=== PATIENT | male | born 1950 | race Hispanic/Latino ===

== ENCOUNTER → 2019-07-09 | Outpatient (CLI) | payer OTHER | END | disposition home or self-care (01) | LOC: RAH 08:58 | PROVIDERS: ATTEND Ophthalmology | DX: B58.01 Toxoplasma chorioretinitis (principal); I70.0 Atherosclerosis of aorta; M47.814 Spondylosis without myelopathy or radiculopathy, thoracic region | CPT/HCPCS: 71046 ==

== ENCOUNTER → 2019-09-09 | Outpatient (CLI) | payer OTHER | END | disposition home or self-care (01) | LOC: RAH 10:33 | PROVIDERS: ATTEND Family Medicine | DX: R10.30 Lower abdominal pain, unspecified (principal); R10.2 Pelvic and perineal pain; R31.9 Hematuria, unspecified; R10.813 Right lower quadrant abdominal tenderness; R39.89 Other symptoms and signs involving the genitourinary system | CPT/HCPCS: 76857 ==

== ENCOUNTER → 2019-10-23 | Outpatient (CLI) | payer OTHER | END | disposition home or self-care (01) | LOC: OIH 10:40 | PROVIDERS: ATTEND Family Medicine | DX: M19.011 Primary osteoarthritis, right shoulder (principal) | CPT/HCPCS: 73030 ==

== ENCOUNTER → 2020-04-16 | Outpatient (CLI) | payer OTHER | END | disposition home or self-care (01) | LOC: RAH 12:56 | PROVIDERS: ATTEND Family Medicine | DX: N28.1 Cyst of kidney, acquired (principal); K59.00 Constipation, unspecified; R14.0 Abdominal distension (gaseous) | CPT/HCPCS: 74018; 76770 ==

== ENCOUNTER → 2020-11-11 | Outpatient (CLI) | payer OTHER | END | disposition home or self-care (01) | LOC: RAH 08:22 | PROVIDERS: ATTEND Family Medicine | DX: I12.9 Hypertensive chronic kidney disease with stage 1 through stage 4 chronic kidney disease, or unspecified chronic kidney disease (principal); N18.4 Chronic kidney disease, stage 4 (severe); I35.0 Nonrheumatic aortic (valve) stenosis; E66.9 Obesity, unspecified; E78.5 Hyperlipidemia, unspecified; R55 Syncope and collapse | CPT/HCPCS: 93306; 93356 ==

== ENCOUNTER → 2021-03-16 | Outpatient (CLI) | payer OTHER | END | disposition home or self-care (01) | LOC: OIH 11:44 | PROVIDERS: ATTEND Family Medicine | DX: M50.30 Other cervical disc degeneration, unspecified cervical region (principal); M43.22 Fusion of spine, cervical region; M25.519 Pain in unspecified shoulder | CPT/HCPCS: 72040; 73010 ==

== ENCOUNTER 2021-03-19 11:00 | Inpatient (IN) | payer OTHER ==
[~2021-03-19] VITALS: Ht 170.2 cm; Wt 98.3 kg
[2021-03-19 11:52] LABS: BASOPHILS % (AUTO) 0.5 % (0.0-5.0); EOSINOPHILS % (AUTO) 1.2 % (0.0-8.0); HEMATOCRIT 47.6 % (42-54); LYMPHOCYTES % (AUTO) 26.2 % (21.0-51.0); MEAN CORPUSCULAR VOLUME 94.1 fL (79-99); MONOCYTES % (AUTO) 9.7 % (3.0-13.0); NEUTROPHILS % (AUTO) 61.6 % (40.0-77.0); PLATELET COUNT (AUTO) 192 K/uL (130-400); RED BLOOD CELL COUNT(AUTO) 5.06 MIL/uL (4.50-6.20); RED CELL DISTRIBUTION WIDTH 13.2 % (11.0-15.5); WHITE BLOOD COUNT (AUTO) 8.6 K/uL (4.8-10.8)
[2021-03-19 11:56] LABS: APPEARANCE,URINE Clear (CLEAR); BILIRUBIN,URINE Negative (NEGATIVE); COLOR,URINE Yellow (YELLOW); GLUCOSE, URINE (UA) Negative (NEGATIVE); KETONES,URINE Negative (NEGATIVE); LEUKOCYTE ESTERASE ,URINE Negative (NEGATIVE); NITRATE,URINE Negative (NEGATIVE); OCCULT BLOOD,URINE Nonhemolyzed Trace (NEGATIVE); PROTEIN,URINE Trace mg/dL (NEGATIVE)
[2021-03-19 12:00] LABS: ABG BASE EXCESS 1.6 mmol/L (-2.0-3.0); ABG HCO3 25.1 mmol/L (21.0-28.0); ABG PCO2 37 mmHg (35-48)
[2021-03-19 12:06] LABS: HEMOGLOBIN A1C 7.4 % (4.0-6.0)
[2021-03-19 12:06] LABS: BACTERIA,URINE None Seen /HPF (None Seen); RBC,URINE 0-1 /HPF (0-1); SQUAMOUS EPITHELIAL CELL,UR 0-2 /HPF (0-2); WBC,URINE 0-1 /HPF (0-1)
[2021-03-19 12:07] LABS: INR 1.02 (0.85-1.15); PROTHROMBIN TIME 11.1 SEC (9.6-11.6)
[2021-03-19 12:08] LABS: PARTIAL THROMBOPLASTIN TIME 31.3 SEC (26.3-35.5)
[2021-03-19 12:10] LABS: ALBUMIN 4.1 g/dL (3.5-5.0); BILIRUBIN,TOTAL 0.5 mg/dL (0.2-1.0); CREATININE 1.3 mg/dL (0.5-1.5); POTASSIUM 3.5 mmol/L (3.5-5.1); TOTAL PROTEIN, SERUM 8.3 g/dL (6.0-8.3)
[2021-03-22] MEDS ORDERED: ASPI-1443 PO (13:23)
[2021-03-22] MEDS ORDERED: SIMV-43 PO (13:23)
[2021-03-22] MEDS ORDERED: MEMA7CAP PO (13:23)
[2021-03-22] MEDS ORDERED: POTA10CA44 PO (13:23)
[2021-03-22] MEDS ORDERED: VITAD50000 PO (13:23)
[2021-03-22] MEDS ORDERED: FURO20TA4 PO (13:23)
[2021-03-22] MEDS ORDERED: PANT40TA54 PO (13:23)
[2021-03-23] VITALS (15 sets, daily range): BP systolic 118–168; BP diastolic 49–77
[2021-03-23] MEDS ORDERED: EPINEPHRINE PF 1MG AMP 10 MG in 0.9% NACL 250ML 240 ML IV PRN (07:30)
[2021-03-23] MEDS ORDERED: AMINOCAPROIC ACID 5,000MG VIAL 15,000 MG in 0.9% NACL 500ML IV.SOLN 420 ML IV PRN (07:30)
[2021-03-23] MEDS ORDERED: NOREPINEPHRINE BITARTRATE 8 MG in DEXTROSE 5%-WATER 250 ML IV PRN (07:30)
[2021-03-23] MEDS ORDERED: LACTATED RINGERS 1000ML 1,000 ML IV ONE (10:10)
[2021-03-23] MEDS ORDERED: CEFAZOLIN SODIUM 1 GM VIAL ONE ×3 (10:13→18:30)
[2021-03-23] MEDS ORDERED: ROPIVACAINE 0.5% 5MG/ML 30ML IJ ONE (10:14)
[2021-03-23] MEDS ORDERED: EPINEPHRINE PF 1MG AMP ONE (10:18)
[2021-03-23] MEDS ORDERED: LIDOCAINE PF 100MG/5ML (2%) SYRINGE 5ML ONE (10:18)
[2021-03-23] MEDS ORDERED: ESMOLOL HCL 10 MG/ML 10 ML VIAL ONE (10:18)
[2021-03-23] MEDS ORDERED: SODIUM BICARB 50MEQ 50ML VIAL 150 ML ONE (10:18)
[2021-03-23] MEDS ORDERED: HEPARIN 10,000 UNIT/10ML (1,000 UNIT/ML) VIAL ONE ×2 (10:18→11:30)
[2021-03-23] MEDS ORDERED: AMINOCAPROIC ACID 5,000MG VIAL ONE (10:18)
[2021-03-23] MEDS ORDERED: PROTAMINE SULFATE 10 MG/ML 25ML VIAL IV ONE (10:18)
[2021-03-23] MEDS ORDERED: PROPOFOL 10 MG/ML 20ML VIAL IV ONE (10:19)
[2021-03-23] MEDS ORDERED: FENTANYL CITRATE PF 50 MCG/1 ML 20ML VIAL IJ ONE (10:19)
[2021-03-23] MEDS ORDERED: MIDAZOLAM HCL 1 MG/ML 2ML VIAL ONE (10:19)
[2021-03-23] MEDS ORDERED: NOREPINEPHRINE BITARTRATE 1 MG/1 ML ML IV ONE (10:19)
[2021-03-23] MEDS ORDERED: ROCURONIUM 10MG/1ML SYR 10 MG/ML ML ONE (10:19)
[2021-03-23] MEDS ORDERED: KETAMINE 50MG/ML SYRINGE 50 MG/ML DISP.SYRIN IV ONE (10:20)
[2021-03-23] MEDS ORDERED: DELNIDO FORMULA 1 BAG IV ONE (11:30)
[2021-03-23 11:41] LABS: ABG BASE EXCESS -1.3 mmol/L (-2.0-3.0); ABG HCO3 24.6 mmol/L (21.0-28.0); ABG OXYGEN SATURATION 99.2 % (95.0-99.0); ABG PCO2 45 mmHg (35-48)
[2021-03-23] MEDS ORDERED: MANNITOL 25% 50ML VIAL IV ONE (12:36)
[2021-03-23] MEDS ORDERED: ALBUMIN (HUMAN) 25% 50 ML IV ONE (12:36)
[2021-03-23] MEDS ORDERED: SODIUM BICARB 8.4% 50ML SYRINGE IVP ONE (12:36)
[2021-03-23] MEDS ORDERED: AMINOCAPROIC ACID 5,000MG VIAL IV ONE (12:36)
[2021-03-23] MEDS ORDERED: CACL 1GM SYG IVP ONE (12:36)
[2021-03-23] MEDS ORDERED: LIDOCAINE PF 100MG/5ML (2%) SYRINGE 5ML IVP ONE (12:36)
[2021-03-23] MEDS ORDERED: HEPARIN 10,000 UNIT VIAL IJ ONE (12:36)
[2021-03-23] MEDS ORDERED: MAGNESIUM SULFATE 1 GM/2 ML VIAL IM ONE (12:36)
[2021-03-23] MEDS ORDERED: PHENYLEPHRINE HCL 10 MG/ML 1ML VIAL IV ONE (12:36)
[2021-03-23] MEDS ORDERED: HEPARIN 10,000 UNIT/10ML (1,000 UNIT/ML) VIAL IV ONE (12:36)
[2021-03-23 13:08] LABS: ABG BASE EXCESS -2.5 mmol/L (-2.0-3.0); ABG HCO3 22.6 mmol/L (21.0-28.0); ABG OXYGEN SATURATION 97.8 % (95.0-99.0); ABG PCO2 40 mmHg (35-48)
[2021-03-23 14:02] LABS: ABG BASE EXCESS -4.3 mmol/L (-2.0-3.0); ABG HCO3 21.4 mmol/L (21.0-28.0); ABG OXYGEN SATURATION 95.7 % (95.0-99.0); ABG PCO2 41 mmHg (35-48)
[2021-03-23] MEDS ORDERED: SODIUM BICARB 50MEQ 50ML VIAL 50 ML ONE (14:20)
[2021-03-23] MEDS ORDERED: DEXTROSE 50%-WATER 50 ML DISP.SYRIN IV PRN (14:30)
[2021-03-23] MEDS ORDERED: ONDANSETRON 4MG INJ IV PRN (14:30)
[2021-03-23] MEDS ORDERED: AMINOCAPROIC ACID 5,000MG VIAL 15,000 MG in 0.9% NACL 250ML 250 ML IV SCH (14:30)
[2021-03-23] MEDS ORDERED: 0.9% NACL 500ML IV.SOLN 500 ML IV SCH (14:30)
[2021-03-23] MEDS ORDERED: ACETAMINOPHEN 325 MG TAB PO PRN (14:30)
[2021-03-23] MEDS ORDERED: MORPHINE 2 MG SYG IV PRN (14:30)
[2021-03-23] MEDS ORDERED: NOREPINEPHRIN 4MG/NS 250ML 250 ML IV PRN (14:30)
[2021-03-23] MEDS ORDERED: MORPHINE 4 MG SYG IV PRN (14:30)
[2021-03-23] MEDS ORDERED: POTASSIUM PHOS 15 mMOL+NS250ML 250 ML IV PRN (14:30)
[2021-03-23] MEDS ORDERED: TRAMADOL HCL 50 MG TABLET PO PRN (14:30)
[2021-03-23] MEDS ORDERED: GLUCAGON 1MG KIT 1 MG ML IM PRN (14:30)
[2021-03-23] MEDS ORDERED: ALBUMIN (HUMAN) 5% 250 ML IV PRN (14:30)
[2021-03-23] MEDS ORDERED: 0.9%NACL 10ML VIAL IVP PRN (14:30)
[2021-03-23] MEDS ORDERED: 0.2% ROPIVACAINE 600ML Q-PUMP IRRIG SCH (14:30)
[2021-03-23] MEDS ORDERED: NITROGLYCERIN 50MG/D5W 250ML 250 BOT IV SCH (14:30)
[2021-03-23] MEDS ORDERED: MAGNESIUM 2GM PREMIX 50ML 50 ML IV PRN (14:30)
[2021-03-23] MEDS ORDERED: 0.9%NACL 1000ML 1,000 ML IV SCH (14:30)
[2021-03-23] MEDS ORDERED: EPINEPHRINE PF 1MG AMP 10 MG in DEXTROSE 5%-WATER 250 ML IV PRN (14:30)
[2021-03-23] MEDS ORDERED: ACETAMINOPHEN 650 MG SUPPOSITORY RC PRN (14:30)
[2021-03-23 14:37] LABS: ABG BASE EXCESS -4.1 mmol/L (-2.0-3.0); ABG HCO3 21.9 mmol/L (21.0-28.0); ABG OXYGEN SATURATION 91.3 % (95.0-99.0); ABG PCO2 44 mmHg (35-48)
[2021-03-23] MEDS ORDERED: EPHEDRINE SULFATE 50 MG/ML AMPULE ONE (15:05)
[2021-03-23] MEDS ORDERED: IPRATROPIUM/ALBUTEROL SULFATE 3 ML SOLUTION IH ONE (15:29)
[2021-03-23 15:41] LABS: ABG BASE EXCESS -6.4 mmol/L (-2.0-3.0); ABG OXYGEN SATURATION 94.3 % (95.0-99.0); ABG PCO2 49 mmHg (35-48)
[2021-03-23 15:52] LABS: HEMATOCRIT 41.6 % (42-54); MEAN CORPUSCULAR HEMOGLOBIN 32.6 pg (27.0-33.0); MEAN CORPUSCULAR HGB CONC 33.9 g/dL (32.0-36.0); MEAN CORPUSCULAR VOLUME 96.3 fL (79-99); RED BLOOD CELL COUNT(AUTO) 4.32 MIL/uL (4.50-6.20); RED CELL DISTRIBUTION WIDTH 13.4 % (11.0-15.5); WHITE BLOOD COUNT (AUTO) 29.6 K/uL (4.8-10.8)
[2021-03-23] MEDS: INSULIN REGULAR, HUMAN 3ML 100 UNIT in 0.9%NACL 100ML 99 ML IV SCH ×2 (15:58)
[2021-03-23] MEDS: SODIUM BICARB 50MEQ 50ML VIAL IV PRN ×4 (15:59→19:50)
[2021-03-23] MEDS: POTASSIUM CHLORIDE 20MEQ/100ML 100 ML IV PRN ×6 (16:03→22:40)
[2021-03-23 16:04] LABS: INR 1.15 (0.85-1.15); PROTHROMBIN TIME 12.4 SEC (9.6-11.6)
[2021-03-23 16:05] LABS: CREATININE 1.6 mg/dL (0.5-1.5); MAGNESIUM 3.2 mg/dL (1.80-2.40); PARTIAL THROMBOPLASTIN TIME 39.3 SEC (26.3-35.5); POTASSIUM 3.1 mmol/L (3.5-5.1)
[2021-03-23] MEDS: CALCIUM GLUC 1GM 1 GM in 0.9%NACL 50ML 50 ML IV PRN ×6 (16:13→22:39)
[2021-03-23 17:06] LABS: ABG HCO3 20.7 mmol/L (21.0-28.0); ABG OXYGEN SATURATION 90.5 % (95.0-99.0); ABG PCO2 41 mmHg (35-48)
[2021-03-23] MEDS: PROPOFOL 1000 MG/100 ML 100 ML IV PRN (17:54)
[2021-03-23] MEDS ORDERED: FUROSEMIDE 40MG VIAL IV SCH (18:00)
[2021-03-23] MEDS ORDERED: FUROSEMIDE 40MG VIAL ONE (18:08)
[2021-03-23 18:12] LABS: ABG HCO3 22.3 mmol/L (21.0-28.0); ABG OXYGEN SATURATION 96.9 % (95.0-99.0); ABG PCO2 37 mmHg (35-48)
[2021-03-23] MEDS: CEFAZOLIN SODIUM 1 GM VIAL IV SCH (18:34)
[2021-03-23] MEDS: IPRATROPIUM/ALBUTEROL SULFATE 3 ML SOLUTION IH SCH (19:00)
[2021-03-23 19:19] LABS: ABG BASE EXCESS -1.8 mmol/L (-2.0-3.0); ABG HCO3 22.6 mmol/L (21.0-28.0); ABG OXYGEN SATURATION 98.7 % (95.0-99.0); ABG PCO2 38 mmHg (35-48)
[2021-03-23] MEDS ORDERED: CALCIUM GLUC 1GM/10ML VIAL ONE ×3 (19:44→22:38)
[2021-03-23 20:17] LABS: ABG BASE EXCESS 1.7 mmol/L (-2.0-3.0); ABG HCO3 26.3 mmol/L (21.0-28.0); ABG OXYGEN SATURATION 98.6 % (95.0-99.0); ABG PCO2 41 mmHg (35-48)
[2021-03-23] MEDS: ASPIRIN 81 MG EC TAB PO SCH (20:40)
[2021-03-23] MEDS: FAMOTIDINE 20MG VIAL IV SCH (20:40)
[2021-03-23] MEDS: SIMVASTATIN 20 MG TABLET PO SCH (20:40)
[2021-03-23] MEDS: MEMANTINE HCL 7 MG PO SCH (21:00)
[2021-03-23 21:30] LABS: ABG BASE EXCESS -0.8 mmol/L (-2.0-3.0); ABG HCO3 22.4 mmol/L (21.0-28.0); ABG OXYGEN SATURATION 99.2 % (95.0-99.0); ABG PCO2 33 mmHg (35-48)
[2021-03-23 22:34] LABS: ABG BASE EXCESS -0.2 mmol/L (-2.0-3.0); ABG HCO3 24.4 mmol/L (21.0-28.0); ABG OXYGEN SATURATION 98.7 % (95.0-99.0); ABG PCO2 40 mmHg (35-48)
[2021-03-23 23:41] LABS: ABG BASE EXCESS 0.2 mmol/L (-2.0-3.0); ABG HCO3 24.3 mmol/L (21.0-28.0); ABG OXYGEN SATURATION 98.8 % (95.0-99.0); ABG PCO2 38 mmHg (35-48)
[2021-03-24] VITALS (22 sets, daily range): BP systolic 99–170; BP diastolic 47–74
[2021-03-24] MEDS: IPRATROPIUM/ALBUTEROL SULFATE 3 ML SOLUTION IH SCH ×4 (00:21→18:35)
[2021-03-24 01:13] LABS: ABG BASE EXCESS 1.6 mmol/L (-2.0-3.0); ABG HCO3 25.5 mmol/L (21.0-28.0); ABG OXYGEN SATURATION 98.2 % (95.0-99.0); ABG PCO2 38 mmHg (35-48)
[2021-03-24] MEDS ORDERED: CALCIUM GLUC 1GM/10ML VIAL ONE (01:17)
[2021-03-24] MEDS: CALCIUM GLUC 1GM 1 GM in 0.9%NACL 50ML 50 ML IV PRN (01:18)
[2021-03-24] MEDS: POTASSIUM CHLORIDE 20MEQ/100ML 100 ML IV PRN ×2 (01:19→13:10)
[2021-03-24] MEDS: CEFAZOLIN SODIUM 1 GM VIAL IV SCH ×2 (02:52→12:10)
[2021-03-24 02:58] LABS: ABG BASE EXCESS 3.6 mmol/L (-2.0-3.0); ABG HCO3 27.5 mmol/L (21.0-28.0); ABG OXYGEN SATURATION 98.2 % (95.0-99.0); ABG PCO2 39 mmHg (35-48)
[2021-03-24 03:04] LABS: ABG BASE EXCESS 3.9 mmol/L (-2.0-3.0); ABG HCO3 27.8 mmol/L (21.0-28.0); ABG OXYGEN SATURATION 98.1 % (95.0-99.0); ABG PCO2 39 mmHg (35-48)
[2021-03-24] MEDS: PROPOFOL 1000 MG/100 ML 100 ML IV PRN (03:48)
[2021-03-24] MEDS: INSULIN REGULAR, HUMAN 3ML 100 UNIT in 0.9%NACL 100ML 99 ML IV SCH ×2 (03:50)
[2021-03-24 04:14] LABS: MEAN CORPUSCULAR HEMOGLOBIN 31.9 pg (27.0-33.0); MEAN CORPUSCULAR HGB CONC 33.8 g/dL (32.0-36.0); MEAN CORPUSCULAR VOLUME 94.4 fL (79-99); RED BLOOD CELL COUNT(AUTO) 4.45 MIL/uL (4.50-6.20); WHITE BLOOD COUNT (AUTO) 22.8 K/uL (4.8-10.8)
[2021-03-24 04:20] LABS: INR 1.09 (0.85-1.15); PROTHROMBIN TIME 11.8 SEC (9.6-11.6)
[2021-03-24 04:23] LABS: CREATININE 2.1 mg/dL (0.5-1.5); MAGNESIUM 2.4 mg/dL (1.80-2.40); PHOSPHORUS 1.8 mg/dL (2.5-4.9); POTASSIUM 4.1 mmol/L (3.5-5.1)
[2021-03-24 04:34] LABS: ABG HCO3 28.2 mmol/L (21.0-28.0); ABG OXYGEN SATURATION 96.7 % (95.0-99.0); ABG PCO2 41 mmHg (35-48)
[2021-03-24] MEDS: FUROSEMIDE 20MG VIAL IV SCH ×2 (07:54→20:19)
[2021-03-24] MEDS: FAMOTIDINE 20MG VIAL IV SCH ×2 (07:54→20:19)
[2021-03-24 08:29] LABS: ABG BASE EXCESS 4.8 mmol/L (-2.0-3.0); ABG HCO3 28.1 mmol/L (21.0-28.0); ABG OXYGEN SATURATION 95.3 % (95.0-99.0); ABG PCO2 37 mmHg (35-48)
[2021-03-24] MEDS: SOLU-MEDROL 40MG VIAL IVP SCH ×2 (09:45→17:21)
[2021-03-24 10:00] LABS: ABG BASE EXCESS 2.4 mmol/L (-2.0-3.0); ABG HCO3 25.6 mmol/L (21.0-28.0); ABG OXYGEN SATURATION 96.5 % (95.0-99.0); ABG PCO2 35 mmHg (35-48)
[2021-03-24] MEDS ORDERED: FUROSEMIDE 40MG VIAL IV SCH (10:00)
[2021-03-24] MEDS ORDERED: IPRATROPIUM/ALBUTEROL SULFATE 3 ML SOLUTION IH PRN (11:00)
[2021-03-24 12:58] LABS: ABG BASE EXCESS 6.2 mmol/L (-2.0-3.0); ABG HCO3 29.5 mmol/L (21.0-28.0); ABG OXYGEN SATURATION 96.1 % (95.0-99.0); ABG PCO2 38 mmHg (35-48)
[2021-03-24] MEDS: TRAMADOL HCL 50 MG TABLET PO PRN (14:48)
[2021-03-24] MEDS: ASPIRIN 81 MG EC TAB PO SCH (20:19)
[2021-03-24] MEDS: SIMVASTATIN 20 MG TABLET PO SCH (20:20)
[2021-03-24] MEDS: MEMANTINE HCL 7 MG PO SCH (20:21)
[2021-03-25] VITALS (28 sets, daily range): BP systolic 112–236; BP diastolic 48–236
[2021-03-25] MEDS: SOLU-MEDROL 40MG VIAL IVP SCH ×3 (00:10→18:37)
[2021-03-25] MEDS: INSULIN REGULAR, HUMAN 3ML 100 UNIT in 0.9%NACL 100ML 99 ML IV SCH ×2 (00:17)
[2021-03-25] MEDS: IPRATROPIUM/ALBUTEROL SULFATE 3 ML SOLUTION IH SCH ×4 (00:48→19:04)
[2021-03-25 03:54] LABS: CREATININE 1.8 mg/dL (0.5-1.5); POTASSIUM 3.6 mmol/L (3.5-5.1)
[2021-03-25 04:22] LABS: HEMATOCRIT 38.3 % (42-54); MEAN CORPUSCULAR HEMOGLOBIN 32.6 pg (27.0-33.0); MEAN CORPUSCULAR HGB CONC 33.2 g/dL (32.0-36.0); MEAN CORPUSCULAR VOLUME 98.2 fL (79-99); RED BLOOD CELL COUNT(AUTO) 3.9 MIL/uL (4.50-6.20); RED CELL DISTRIBUTION WIDTH 14.6 % (11.0-15.5); WHITE BLOOD COUNT (AUTO) 27.5 K/uL (4.8-10.8)
[2021-03-25] MEDS: POTASSIUM CHLORIDE 20MEQ/100ML 100 ML IV PRN (04:31)
[2021-03-25] MEDS ORDERED: FUROSEMIDE 20 MG TABLET PO SCH (09:00)
[2021-03-25] MEDS: METOPROLOL TARTRATE 25 MG TAB PO SCH ×2 (09:00→20:45)
[2021-03-25] MEDS: FAMOTIDINE 20MG VIAL IV SCH ×2 (09:55→20:42)
[2021-03-25] MEDS: TRAMADOL HCL 50 MG TABLET PO PRN (10:21)
[2021-03-25] MEDS: INSULIN HUMULIN R 100 UNIT/ML 3ML SQ SCH ×3 (13:09→20:40)
[2021-03-25] MEDS: ASPIRIN 81 MG EC TAB PO SCH (20:42)
[2021-03-25] MEDS: SIMVASTATIN 20 MG TABLET PO SCH (20:42)
[2021-03-25] MEDS: MEMANTINE HCL 7 MG PO SCH (20:59)
[2021-03-26] VITALS (35 sets, daily range): BP systolic 90–189; BP diastolic 43–189
[2021-03-26] MEDS: IPRATROPIUM/ALBUTEROL SULFATE 3 ML SOLUTION IH SCH ×4 (00:27→18:00)
[2021-03-26] MEDS: SOLU-MEDROL 40MG VIAL IVP SCH ×3 (00:52→16:40)
[2021-03-26 04:14] LABS: RED BLOOD CELL COUNT(AUTO) 3.49 MIL/uL (4.50-6.20); WHITE BLOOD COUNT (AUTO) 22.3 K/uL (4.8-10.8)
[2021-03-26 04:15] LABS: MEAN CORPUSCULAR HEMOGLOBIN 32.1 pg (27.0-33.0); MEAN CORPUSCULAR VOLUME 100.3 fL (79-99); RED CELL DISTRIBUTION WIDTH 13.7 % (11.0-15.5)
[2021-03-26 04:29] LABS: CREATININE 1.3 mg/dL (0.5-1.5); POTASSIUM 4.3 mmol/L (3.5-5.1)
[2021-03-26] MEDS: INSULIN HUMULIN R 100 UNIT/ML 3ML SQ SCH ×4 (05:49→21:00)
[2021-03-26] MEDS: FUROSEMIDE 20 MG TABLET PO SCH ×2 (09:38→16:40)
[2021-03-26] MEDS: FAMOTIDINE 20MG VIAL IV SCH ×2 (09:38→22:00)
[2021-03-26] MEDS: ENOXAPARIN SODIUM 30 MG/0.3 ML SQ SCH (09:39)
[2021-03-26] MEDS: METOPROLOL TARTRATE 25 MG TAB PO SCH ×2 (09:39→22:00)
[2021-03-26] MEDS: MEMANTINE HCL 7 MG PO SCH (21:00)
[2021-03-26] MEDS: SIMVASTATIN 20 MG TABLET PO SCH (22:00)
[2021-03-26] MEDS: ASPIRIN 81 MG EC TAB PO SCH (22:01)
[2021-03-27] VITALS (20 sets, daily range): BP systolic 103–142; BP diastolic 44–76
[2021-03-27] MEDS: SOLU-MEDROL 40MG VIAL IVP SCH (00:19)
[2021-03-27] MEDS: IPRATROPIUM/ALBUTEROL SULFATE 3 ML SOLUTION IH SCH ×4 (00:56→18:47)
[2021-03-27 03:52] LABS: HEMATOCRIT 34.9 % (42-54); MEAN CORPUSCULAR HGB CONC 33.2 g/dL (32.0-36.0); MEAN CORPUSCULAR VOLUME 96.4 fL (79-99); RED BLOOD CELL COUNT(AUTO) 3.62 MIL/uL (4.50-6.20); WHITE BLOOD COUNT (AUTO) 15.5 K/uL (4.8-10.8)
[2021-03-27 03:58] LABS: CREATININE 1.3 mg/dL (0.5-1.5); POTASSIUM 3.9 mmol/L (3.5-5.1)
[2021-03-27] MEDS: INSULIN HUMULIN R 100 UNIT/ML 3ML SQ SCH ×4 (06:53→20:50)
[2021-03-27] MEDS: METOPROLOL TARTRATE 25 MG TAB PO SCH ×2 (08:44→20:55)
[2021-03-27] MEDS: FAMOTIDINE 20MG TAB PO SCH ×2 (08:44→20:56)
[2021-03-27] MEDS: FUROSEMIDE 20 MG TABLET PO SCH ×2 (08:44→16:44)
[2021-03-27] MEDS: ENOXAPARIN SODIUM 30 MG/0.3 ML SQ SCH (08:45)
[2021-03-27] MEDS: TRAMADOL HCL 50 MG TABLET PO PRN (14:50)
[2021-03-27] MEDS: ASPIRIN 81 MG EC TAB PO SCH ×2 (20:48→20:51)
[2021-03-27] MEDS: SIMVASTATIN 20 MG TABLET PO SCH (20:56)
[2021-03-27] MEDS: MEMANTINE HCL 7 MG PO SCH (21:00)
[2021-03-28] VITALS: BP 130/64
[2021-03-28] MEDS: IPRATROPIUM/ALBUTEROL SULFATE 3 ML SOLUTION IH SCH ×4 (00:14→18:46)
[2021-03-28 04:00] VITALS: BP 125/72
[2021-03-28] MEDS: INSULIN HUMULIN R 100 UNIT/ML 3ML SQ SCH ×4 (06:26→21:00)
[2021-03-28 07:51] VITALS: BP 117/70
[2021-03-28] MEDS: FAMOTIDINE 20MG TAB PO SCH ×2 (09:42→22:19)
[2021-03-28] MEDS: FUROSEMIDE 20 MG TABLET PO SCH ×2 (09:42→17:49)
[2021-03-28] MEDS: ENOXAPARIN SODIUM 30 MG/0.3 ML SQ SCH (09:43)
[2021-03-28] MEDS: METOPROLOL TARTRATE 25 MG TAB PO SCH ×2 (09:43→22:18)
[2021-03-28 12:43] VITALS: BP 117/56
[2021-03-28 17:54] VITALS: BP 137/72
[2021-03-28] MEDS: ACETAMINOPHEN 325 MG TAB PO PRN (18:18)
[2021-03-28 20:00] VITALS: BP 118/47
[2021-03-28] MEDS: MEMANTINE HCL 7 MG PO SCH (21:00)
[2021-03-28] MEDS: SIMVASTATIN 20 MG TABLET PO SCH (22:19)
[2021-03-28] MEDS: ASPIRIN 81 MG EC TAB PO SCH (22:19)
[2021-03-29] VITALS: BP 129/78
[2021-03-29] MEDS: IPRATROPIUM/ALBUTEROL SULFATE 3 ML SOLUTION IH SCH ×5 (00:15→23:37)
[2021-03-29 04:00] VITALS: BP 122/51
[2021-03-29] MEDS: INSULIN HUMULIN R 100 UNIT/ML 3ML SQ SCH ×4 (06:48→21:00)
[2021-03-29 08:00] VITALS: BP 108/63
[2021-03-29] MEDS: FUROSEMIDE 20 MG TABLET PO SCH ×2 (08:37→17:08)
[2021-03-29] MEDS: FAMOTIDINE 20MG TAB PO SCH ×2 (08:37→20:55)
[2021-03-29] MEDS: METOPROLOL TARTRATE 25 MG TAB PO SCH ×2 (08:37→20:55)
[2021-03-29] MEDS: ENOXAPARIN SODIUM 30 MG/0.3 ML SQ SCH (08:39)
[2021-03-29 12:00] VITALS: BP 136/70
[2021-03-29 16:00] VITALS: BP 103/68
[2021-03-29] MEDS: MEMANTINE HCL 7 MG PO SCH (19:36)
[2021-03-29 20:00] VITALS: BP 113/54
[2021-03-29] MEDS: ASPIRIN 81 MG EC TAB PO SCH (20:55)
[2021-03-29] MEDS: SIMVASTATIN 20 MG TABLET PO SCH (20:56)
[2021-03-30] VITALS: BP 113/59
[2021-03-30 04:00] VITALS: BP 112/52
[2021-03-30] MEDS: ACETAMINOPHEN 325 MG TAB PO PRN (04:06)
[2021-03-30] MEDS: IPRATROPIUM/ALBUTEROL SULFATE 3 ML SOLUTION IH SCH ×3 (06:57→18:33)
[2021-03-30] MEDS: INSULIN HUMULIN R 100 UNIT/ML 3ML SQ SCH ×3 (07:30→16:30)
[2021-03-30 08:00] VITALS: BP 124/62
[2021-03-30] MEDS: METOPROLOL TARTRATE 25 MG TAB PO SCH (10:02)
[2021-03-30] MEDS: FAMOTIDINE 20MG TAB PO SCH (10:02)
[2021-03-30] MEDS: FUROSEMIDE 20 MG TABLET PO SCH ×2 (10:02→17:00)
[2021-03-30] MEDS: ENOXAPARIN SODIUM 30 MG/0.3 ML SQ SCH (10:03)
[2021-03-30 11:56] VITALS: BP 133/69
[2021-03-30 15:31] VITALS: BP 125/65
== END 2021-03-30 18:30 | DRG 219 ==
LOC: DAHIP 03-23 09:12 → 2CV 03-23 13:20 → 2CH 03-24 07:15 → 2DH 03-29 08:34
PROVIDERS: ADMIT Thoracic Surgery (Cardiothoracic Vascular Surgery); ATTEND Thoracic Surgery (Cardiothoracic Vascular Surgery)
PROC: 02QX0ZZ Repair Thoracic Aorta, Ascending/Arch, Open Approach (ICD-10-PCS; 2021-03-23)
PROC: 5A1221Z Performance of Cardiac Output, Continuous (ICD-10-PCS; 2021-03-23)
PROC: B24BZZ4 Ultrasonography of Heart with Aorta, Transesophageal (ICD-10-PCS; 2021-03-23)
PROC: 03HY32Z Insertion of Monitoring Device into Upper Artery, Percutaneous Approach (ICD-10-PCS; 2021-03-23)
PROC: 02RF08Z Replacement of Aortic Valve with Zooplastic Tissue, Open Approach (ICD-10-PCS; principal; 2021-03-23 11:00)
PROC: 5A09357 Assistance with Respiratory Ventilation, Less than 24 Consecutive Hours, Continuous Positive Airway Pressure (ICD-10-PCS; 2021-03-24)
DX: I35.0 Nonrheumatic aortic (valve) stenosis (principal); R65.11 Systemic inflammatory response syndrome (SIRS) of non-infectious origin with acute organ dysfunction; N17.9 Acute kidney failure, unspecified; J98.11 Atelectasis; N99.0 Postprocedural (acute) (chronic) kidney failure; E78.5 Hyperlipidemia, unspecified; I10 Essential (primary) hypertension; J44.9 Chronic obstructive pulmonary disease, unspecified; Z20.822 Contact with and (suspected) exposure to COVID-19; K21.9 Gastro-esophageal reflux disease without esophagitis; F03.90 Unspecified dementia, unspecified severity, without behavioral disturbance, psychotic disturbance, mood disturbance, and anxiety; I25.10 Atherosclerotic heart disease of native coronary artery without angina pectoris; I11.9 Hypertensive heart disease without heart failure; E87.70 Fluid overload, unspecified; E78.00 Pure hypercholesterolemia, unspecified; R06.89 Other abnormalities of breathing; D69.6 Thrombocytopenia, unspecified; I71.2 Thoracic aortic aneurysm, without rupture; R09.02 Hypoxemia; Z79.82 Long term (current) use of aspirin; Z79.899 Other long term (current) drug therapy; Z83.3 Family history of diabetes mellitus; Z82.49 Family history of ischemic heart disease and other diseases of the circulatory system
CPT/HCPCS: 36415; 36600; 71045; 71046; 80048; 80053; 80061; 81001; 82435; 82803; 82947; 82948; 83036; 83605; 83735; 84100; 84132; 84295; 85018; 85025; 85027; 85347; 85610; 85730; 86850; 86900; 86901; 86923; 87088; 87635; 88305; 88311; 93005; 93313; 93318; 94002; 94003; 94010; 94640; 94660; 97039; A7048; C1763; G0378; J0171; J0610; J0690; J1644; J1650; J1815; J1940; J2001; J2150; J2250; J2370; J2704; J2720; J2795; J2920; J3010; J3475; J3480; J3490; J7030; J7040; J7050; J7120; P9047

== ENCOUNTER → 2021-05-07 | Outpatient (CLI) | payer OTHER ==
[~2021-05-07] MED LIST: ASPI-1443 PO; FURO20TA4 PO; MEMA7CAP PO; PANT40TA54 PO; POTA10CA44 PO; SIMV-43 PO; VITAD50000 PO
== END | disposition home or self-care (01) ==
LOC: RAH 05-06 12:37
PROVIDERS: ATTEND Internal Medicine Cardiovascular Disease
DX: I51.7 Cardiomegaly (principal); I35.0 Nonrheumatic aortic (valve) stenosis; Z95.2 Presence of prosthetic heart valve
CPT/HCPCS: 93306; 93356

== ENCOUNTER → 2021-11-17 | Outpatient (CLI) | payer OTHER | END | disposition home or self-care (01) | LOC: SHCH 09:56 | PROVIDERS: ATTEND Internal Medicine Cardiovascular Disease | DX: I11.9 Hypertensive heart disease without heart failure (principal); E11.9 Type 2 diabetes mellitus without complications; E78.5 Hyperlipidemia, unspecified; R55 Syncope and collapse; Z95.2 Presence of prosthetic heart valve | CPT/HCPCS: 93306 ==

== ENCOUNTER → 2021-12-29 | Outpatient (CLI) | payer OTHER | END | disposition home or self-care (01) | LOC: LAB 08:08 | PROVIDERS: ATTEND Internal Medicine Cardiovascular Disease | DX: I10 Essential (primary) hypertension (principal) | CPT/HCPCS: 36415; 83880; 85378 ==

== ENCOUNTER 2023-05-21 07:54 | Emergency (ER) | payer OTHER ==
[~2023-05-21] VITALS: Ht 167.6 cm; Wt 97.1 kg
[~2023-05-21 07:54] MED LIST changes: +AMOX1TAB16 PO; +CLOP-31 PO; +DONE5TAB33 PO; +DULA0.75 SQ; +FENO145T26 PO; +METF-444 PO; +METO-408 PO; -POTA10CA44 PO; +POTA10CA85 PO
[2023-05-21 08:36] LABS: BASOPHILS # (AUTO) 0.03 K/uL (0.00-0.20); BASOPHILS % (AUTO) 0.3 % (0.0-5.0); EOSINOPHILS # (AUTO) 0.04 K/uL (0.00-0.70); EOSINOPHILS % (AUTO) 0.4 % (0.0-8.0); IMMATURE GRANULOCYTE ABSOLUTE 0.05 K/uL (0-1); LYMPHOCYTES # (AUTO) 1.6 K/uL (1.0-4.8); LYMPHOCYTES % (AUTO) 16.3 % (21.0-51.0); MEAN CORPUSCULAR HEMOGLOBIN 32.8 pg (27.0-33.0); MEAN CORPUSCULAR HGB CONC 34.3 g/dL (32.0-36.0); MEAN CORPUSCULAR VOLUME 95.4 fL (79-99); MONOCYTES # (AUTO) 0.9 K/uL (0.1-1.0); MONOCYTES % (AUTO) 9.2 % (3.0-13.0); NEUTROPHILS # (AUTO) 7.4 K/uL (1.8-7.7); NEUTROPHILS % (AUTO) 73.3 % (40.0-77.0); PLATELET COUNT (AUTO) 203 K/uL (130-400); RED BLOOD CELL COUNT(AUTO) 4.61 MIL/uL (4.50-6.20); RED CELL DISTRIBUTION WIDTH 12.9 % (11.0-15.5)
[2023-05-21 08:41] LABS: APPEARANCE,URINE CLEAR (CLEAR); BILIRUBIN,URINE NEGATIVE (NEGATIVE); COLOR,URINE LIGHT-YELLOW (YELLOW); GLUCOSE, URINE (UA) NEGATIVE (NEGATIVE); KETONES,URINE NEGATIVE (NEGATIVE); LEUKOCYTE ESTERASE ,URINE NEGATIVE Leu/uL (NEGATIVE); NITRATE,URINE NEGATIVE (NEGATIVE); OCCULT BLOOD,URINE NEGATIVE (NEGATIVE); PH,URINE 6.5 (5.0-8.0); PROTEIN,URINE 30 mg/dL (NEGATIVE); UROBILINOGEN,URINE 0.2 mg/dL (0.2-1.0)
[2023-05-21 08:45] LABS: ADD UA MICROSCOPIC YES; CREATININE 1.4 mg/dL (0.5-1.5); POTASSIUM 3.6 mmol/L (3.5-5.1)
[2023-05-21 08:47] LABS: INR 0.97 (0.85-1.15); PROTHROMBIN TIME 11.3 SEC (9.6-11.6)
[2023-05-21 08:48] LABS: PARTIAL THROMBOPLASTIN TIME 30.2 SEC (26.3-35.5)
[2023-05-21 08:49] LABS: ALBUMIN 3.6 g/dL (3.5-5.0); BILIRUBIN,TOTAL 0.6 mg/dL (0.2-1.0); MAGNESIUM 1.9 mg/dL (1.80-2.40); MUCUS,URINE RARE LPF (None Seen); RBC,URINE 0-1 /HPF (0-1); SQUAMOUS EPITHELIAL CELL,UR RARE /HPF (0-2); TOTAL PROTEIN, SERUM 7.7 g/dL (6.0-8.3)
[2023-05-21 12:44] VITALS: BP 128/71; PULSE 70; RESP 18; O2SAT 95
[2023-05-21] MEDS ORDERED: MECL-302 PO (13:50)
[2023-05-21] MEDS ORDERED: MECLIZINE HCL 25 MG TABLET PO ONE (14:00)
== END 2023-05-21 14:15 | disposition home or self-care (01) ==
LOC: EDH 07:54
DX: R42 Dizziness and giddiness (principal); H61.21 Impacted cerumen, right ear; E11.65 Type 2 diabetes mellitus with hyperglycemia; E78.00 Pure hypercholesterolemia, unspecified; I10 Essential (primary) hypertension; Z79.02 Long term (current) use of antithrombotics/antiplatelets; Z79.82 Long term (current) use of aspirin; Z79.84 Long term (current) use of oral hypoglycemic drugs; Z79.85 Long-term (current) use of injectable non-insulin antidiabetic drugs; Z79.899 Other long term (current) drug therapy
CPT/HCPCS: 36415; 70450; 70544; 70547; 70551; 71045; 80053; 81001; 83735; 85025; 85610; 85730; 93005

== ENCOUNTER → 2023-07-17 | Outpatient (CLI) | payer OTHER ==
[~2023-07-17] MED LIST changes: +MECL-302 PO
[2023-07-17 12:25] LABS: CHOLESTEROL 134 mg/dL (<200); HDL CHOLESTEROL 38 mg/dL (29-71); LDL DIRECT 83 mg/dL (0-99); TRIGLYCERIDES 163 mg/dL (30-200)
== END | disposition home or self-care (01) ==
LOC: LAB 08:12
PROVIDERS: ATTEND Internal Medicine Cardiovascular Disease
DX: E78.5 Hyperlipidemia, unspecified (principal)
CPT/HCPCS: 36415; 80061

== ENCOUNTER 2023-11-23 12:02 | Emergency (ER) | payer OTHER ==
[~2023-11-23] VITALS: Ht 167.6 cm; Wt 94.8 kg
[~2023-11-23 12:02] MED LIST changes: -POTA10CA85 PO; +POTA10CA95 PO
[2023-11-23 13:11] LABS: BASOPHILS # (AUTO) 0.02 K/uL (0.00-0.20); BASOPHILS % (AUTO) 0.2 % (0.0-5.0); EOSINOPHILS # (AUTO) 0.01 K/uL (0.00-0.70); EOSINOPHILS % (AUTO) 0.1 % (0.0-8.0); HEMATOCRIT 43.7 % (42-54); IMMATURE GRANULOCYTE ABSOLUTE 0.04 K/uL (0-1); LYMPHOCYTES # (AUTO) 1.2 K/uL (1.0-4.8); LYMPHOCYTES % (AUTO) 14.9 % (21.0-51.0); MEAN CORPUSCULAR HEMOGLOBIN 32.3 pg (27.0-33.0); MEAN CORPUSCULAR VOLUME 92.4 fL (79-99); MONOCYTES # (AUTO) 0.5 K/uL (0.1-1.0); MONOCYTES % (AUTO) 6.3 % (3.0-13.0); NEUTROPHILS # (AUTO) 6.4 K/uL (1.8-7.7); PLATELET COUNT (AUTO) 168 K/uL (130-400); RED BLOOD CELL COUNT(AUTO) 4.73 MIL/uL (4.50-6.20); RED CELL DISTRIBUTION WIDTH 13.2 % (11.0-15.5); WHITE BLOOD COUNT (AUTO) 8.2 K/uL (4.8-10.8)
[2023-11-23 13:20] LABS: CREATININE 1.3 mg/dL (0.5-1.3); POTASSIUM 3.8 mmol/L (3.5-5.1)
[2023-11-23 13:25] LABS: BILIRUBIN,TOTAL 0.4 mg/dL (0.2-1.0); TOTAL PROTEIN, SERUM 8.1 g/dL (6.0-8.3)
[2023-11-23] MEDS: 0.9% NACL 500ML IV.SOLN 500 ML IV ONE (14:05)
[2023-11-23] MEDS: ONDANSETRON 4MG INJ IVP ONE (14:05)
[2023-11-23 18:21] VITALS: BP 124/61; PULSE 60; RESP 18; O2SAT 98
== END 2023-11-23 18:21 | disposition home or self-care (01) ==
LOC: EDH 12:02
DX: R07.89 Other chest pain (principal); I10 Essential (primary) hypertension; E11.9 Type 2 diabetes mellitus without complications; E78.00 Pure hypercholesterolemia, unspecified; K21.9 Gastro-esophageal reflux disease without esophagitis; Z79.82 Long term (current) use of aspirin; Z79.84 Long term (current) use of oral hypoglycemic drugs; Z79.899 Other long term (current) drug therapy; Z98.890 Other specified postprocedural states
CPT/HCPCS: 99285; 96374; 71045; 84484 ×4; 80053; 85025; 36415; 93005; J7040; J2405

== ENCOUNTER → 2024-11-05 | Outpatient (CLI) | payer OTHER, MEDICAID ==
--- NOTE | 2024-11-05 09:22 | HMCIMG ---
Exam Type: SHOULDER COMP 2+VWS LT Clinical Information: Pain in left shoulder Comparison: None FINDINGS: The acromioclavicular joint shows hypertrophy, which may impinge upon the rotator cuff tendon. The glenohumeral joint is preserved. Visualized portions of the humerus, the scapula, and the clavicle as well as the upper ribcage are unremarkable. No pulmonary pathology is noted in the visualized portions of the upper lobe. The soft tissues are preserved. There are no other gross abnormalities. IMPRESSION: Degenerative changes of the acromioclavicular joint with hypertrophy.
== END | disposition home or self-care (01) ==
LOC: RAH 07:54
PROVIDERS: ATTEND Family Medicine
DX: M19.012 Primary osteoarthritis, left shoulder (principal); M79.89 Other specified soft tissue disorders; M25.512 Pain in left shoulder; M67.814 Other specified disorders of tendon, left shoulder
CPT/HCPCS: 73030

== ENCOUNTER → 2025-01-01 | Outpatient (CLI) | payer OTHER ==
--- NOTE | 2025-01-01 13:22 | HMCIMG ---
EXAM: MR left shoulder WITHOUT CONTRAST CLINICAL HISTORY: 74 year-old male with complete rotator cuff tear and rupture of the left shoulder. TECHNIQUE: Multiplanar multisequence magnetic resonance images were obtained WITHOUT contrast. CONTRAST: None COMPARISON: XR left shoulder dated 11/05/2024, 09:02 AM FINDINGS: JOINTS: Moderate acromioclavicular joint degenerative changes with capsular hypertrophy and encroachment on the rotator cuff. BONE: No acute fracture or focal osseous lesion. SOFT TISSUES: Moderate tendinopathy of subscapularis, supraspinatus, infraspinatus, and teres minor. High-grade partial-thickness tears of subscapularis, infraspinatus, and teres minor are present. A full-thickness tear of the supraspinatus is seen with retraction of approximately 2.1 cm. A [id number] amount of fluid in the subacromial/subdeltoid bursa is noted. A small collection of fluid in the subcoracoid bursa is seen. IMPRESSION: 1. Full-thickness tear of the supraspinatus with retraction of approximately 2.1 cm. 2. High-grade partial-thickness tears of subscapularis, infraspinatus, and teres minor. 3. Moderate tendinopathy of subscapularis, supraspinatus, infraspinatus, and teres minor. 4. Moderate AC joint degenerative changes with capsular hypertrophy and encroachment on the rotator cuff. /[place]
== END | disposition home or self-care (01) ==
LOC: RAH 10:28
PROVIDERS: ATTEND Family Medicine
DX: M75.122 Complete rotator cuff tear or rupture of left shoulder, not specified as traumatic (principal); M19.012 Primary osteoarthritis, left shoulder; M67.814 Other specified disorders of tendon, left shoulder
CPT/HCPCS: 73221